=== PATIENT | male | born 1970 | race Caucasian/White ===

== ENCOUNTER 2019-12-26 14:30 | Emergency (ER) | payer OTHER ==
[~2019-12-26] VITALS: Ht 175.3 cm; Wt 120.2 kg
[~2019-12-26 14:30] MED LIST: AMBIEN 5 MG TABL5 M1 PO; CELEXA40 MG PO; FLEXERIL PO; LITHIUM CARBON300 M6 PO; MIRTAZAPINE7.5 MG PO
[2019-12-26] MEDS ORDERED: CARVEDILOL25 MG PO (14:39)
[2019-12-26] MEDS ORDERED: LISINOPRIL-HCT1 EACH PO (14:39)
[2019-12-26] MEDS ORDERED: PROTONIX40 M2 PO (14:39)
[2019-12-26] MEDS ORDERED: PROZAC20 M1 PO (14:40)
[2019-12-26] MEDS ORDERED: LAMICTAL100 MG PO (14:40)
[2019-12-26 15:36] LABS: URINE BILIRUBIN NEGATIVE (Negative); URINE BLOOD TRACE (Negative); URINE CLARITY CLEAR; URINE COLOR YELLOW; URINE GLUCOSE-RANDOM NEGATIVE (Negative); URINE KETONES NEGATIVE (Negative); URINE LEUKOCYTES-REFLEX NEGATIVE (Negative); URINE NITRITE-REFLEX NEGATIVE (Negative); URINE PROTEIN NEGATIVE (Negative); URINE UROBILINOGEN 0.2 E.U./dl (0.2-1.0)
[2019-12-26 15:41] LABS: ABSOLUTE BASOPHILS 0.1 thou/uL (0.0-0.2); ABSOLUTE EOSINOPHILS 0.2 thou/uL (0.0-0.7); ABSOLUTE LYMPHOCYTES 2.7 thou/uL (0.8-5.3); ABSOLUTE MONOCYTES 1.2 thou/uL (0.0-1.2); BASOPHILS 0.5 %; EOSINOPHILS 1.2 %; HEMATOCRIT 42.2 % (42.0-52.0); HEMOGLOBIN 13.9 gm/dL (14.0-18.0); LYMPHOCYTES 20.7 %; MCH 27.3 pg (26.0-34.0); MCHC 32.9 g/dL (28.0-37.0); MCV 83.1 fL (80.0-100.0); MONOCYTES 9.3 %; MPV 7.3 fl. (7.2-11.1); NUCLEATED RBCS 0 /100WBC; PLATELET COUNT* 401 thou/uL (150-400); POLYS 68.3 %; RBC 5.09 mil/uL (4.50-6.00); RDW-CV 13.6 % (10.5-14.5); WBC 13.2 thou/uL (4.0-11.0)
[2019-12-26 15:58] LABS: CALCIUM 9.5 mg/dL (8.5-10.1); CREATININE 1.3 mg/dL (0.6-1.3)
[2019-12-26 16:02] LABS: ALBUMIN 3.9 g/dL (3.4-5.0); TOTAL BILIRUBIN 0.2 mg/dL (<0.1-1.0); TOTAL PROTEIN 8.5 g/dL (6.4-8.2)
[2019-12-26] MEDS ORDERED: XANAX 0.5 MG0.5 M1 PO (17:09)
[2019-12-26 17:26] VITALS: BP 156/95
--- NOTE | 2019-12-27 14:06 | EKG ---
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[employer] : 1970 Requested By: Darrel Ring Order Number: [id number] MD: Romero Adkins Measurements Intervals [place] Rate: 87 P: 67 [place]: 176 QRS: -47 QRSD: 94 T: 51 QT: 360 QTc: 433 Interpretive Statements Sinus rhythm Left axis deviation Anteroseptal infarct, age indeterminate, possible Baseline wander in lead(s) V3 No previous ECG available for comparison Electronically Signed On 12-27-2019 14:06:23 LOFTER by Romero Adkins [email or web address] <ELECTRONICALLY SIGNED> By: Romero Adkins MD, FACC 12/27/19 1406 1548 1548 Romero Adkins MD, FAC /EPI
== END 2019-12-26 17:27 | disposition home or self-care (01) ==
LOC: M.ERS 14:30
PROVIDERS: Family Medicine
DX: R10.84 Generalized abdominal pain (principal); F41.9 Anxiety disorder, unspecified; R19.7 Diarrhea, unspecified; I10 Essential (primary) hypertension; F31.9 Bipolar disorder, unspecified; G47.30 Sleep apnea, unspecified; Z88.8 Allergy status to other drugs, medicaments and biological substances

== ENCOUNTER → 2020-01-06 | Outpatient (CLI) | payer OTHER ==
[~2020-01-06] MED LIST changes: +CARVEDILOL25 MG PO; +LAMICTAL100 MG PO; +LISINOPRIL-HCT1 EACH PO; +PROTONIX40 M2 PO; +PROZAC20 M1 PO; +XANAX 0.5 MG0.5 M1 PO
== END ==
LOC: M.LAB 12:10
PROVIDERS: ATTEND Psychiatry & Neurology Psychiatry
DX: Z51.81 Encounter for therapeutic drug level monitoring (principal)